=== PATIENT | female | born 1980 | race Two or more races ===

== ENCOUNTER 2020-05-27 01:12 | Emergency (ER) | payer OTHER, MEDICAID ==
[~2020-05-27] VITALS: Ht 165.1 cm; Wt 97.5 kg
[2020-05-27 03:45] VITALS: BP 134/91
[2020-05-27] MEDS ORDERED: KETOROLAC TROMETH 60MG/2ML VIAL IM ONE (05:30)
== END 2020-05-27 06:25 | disposition home or self-care (01) ==
LOC: ER 01:18
DX: G43.909 Migraine, unspecified, not intractable, without status migrainosus (principal)
CPT/HCPCS: 96372; 99283; J1885